=== PATIENT | male | born 1990 | race Caucasian/White ===

== ENCOUNTER 2016-10-10 17:14 | Emergency (ER) | payer BC ==
--- NOTE | 2016-10-10 17:59 | ER Document Report ---
ED Medical Screen (RME) - General Stated Complaint: PENIS PAIN Time seen by provider: 17:56 Mode of Arrival: Ambulatory Notes: Patient complains of intermittent penile pain for the last year. Has been seen by his primary care provider but no answer to the complaint has been found. Pain is worse after sexual intercourse, now having pain with voiding, which started today. Patient reports increased sensitivity to glans penis. Denies discharge. I have greeted and performed a rapid initial assessment of this patient. A comprehensive ED assessment and evaluation of the patient, analysis of test results and completion of the medical decision making process will be conducted by additional ED providers. TRAVEL OUTSIDE OF THE [place] IN LAST 30 DAYS: No - Related Data Allergies/Adverse Reactions: No Known Allergies Allergy (Verified 10/10/16 17:58) Past Medical History - Past Medical History Cardiac Medical History: Reports: Hx Hypertension Endocrine Medical History: Reports: Hx Diabetes Mellitus Type 2 Past Surgical History: Reports: Hx Abdominal Surgery - Hernia Repair, Hx Nose Surgery, Hx Oral Surgery - wisdom, Hx Orthopedic Surgery - L thumb - Immunizations Hx Diphtheria, Pertussis, Tetanus Vaccination: Yes Physical Exam - Vital signs Vitals: Temp Pulse Resp BP Pulse Ox 98.1 F 92 18 129/83 H 100 10/10/16 17:51 10/10/16 17:51 10/10/16 17:51 10/10/16 17:51 10/10/16 17:51 - Abdominal Notes: Abdomen soft, nontender, bowel sounds normal on exam. Course - Vital Signs Vital signs: Temp Pulse Resp BP Pulse Ox 98.1 F 92 18 129/83 H 100 10/10/16 17:51 10/10/16 17:51 10/10/16 17:51 10/10/16 17:51 10/10/16 17:51
[2016-10-10 18:25] LABS: APPEARANCE,URINE SLIGHTLY-CLOUDY; BILIRUBIN,URINE NEGATIVE (NEGATIVE); GLUCOSE, URINE >=500 mg/dL (NEGATIVE); KETONES,URINE TRACE mg/dL (NEGATIVE); LEUKOCYTE ESTERASE,URINE MODERATE (NEGATIVE); NITRITE,URINE NEGATIVE (NEGATIVE); PROTEIN,URINE NEGATIVE (NEGATIVE); UROBILINOGEN,URINE NEGATIVE mg/dL (<2.0)
[2016-10-10] MEDS ORDERED: CEFTRIAXONE INJ 250 MG VIAL IM ONE (20:59)
[2016-10-10] MEDS ORDERED: LIDOCAINE 1% INJ-PF (10 MG/ML) 30 ML SDV INJ ONE (20:59)
[2016-10-10] MEDS ORDERED: AZITHROMYCIN 250 MG TABLET PO ONE (21:00)
--- NOTE | 2016-10-10 21:02 | ER Document Report ---
ED GI/ - General Chief Complaint: Penile Pain Stated Complaint: PENIS PAIN Mode of Arrival: Ambulatory Notes: Patient is a 26-year-old male that comes emergency department for chief complaint of general discomfort in his groin, he states that his started to have painful urination over the past day, he noticed discharge at the tip of the penis which was yellowish in color this evening. Patient states he is sexually active with his . Patient denies fever, rash, or any other current symptoms. TRAVEL OUTSIDE OF THE [place] IN LAST 30 DAYS: No - Related Data Allergies/Adverse Reactions: No Known Allergies Allergy (Verified 10/10/16 17:58) Past Medical History - General Information source: Patient - Social History Smoking Status: Never Smoker Chew tobacco use (# tins/day): No Frequency of alcohol use: None Drug Abuse: None Lives with: Family Family History: Reviewed & Not Pertinent, Other - Mother-CHF Patient has suicidal ideation: No Patient has homicidal ideation: No - Past Medical History Cardiac Medical History: Reports: Hx Hypertension Endocrine Medical History: Reports: Hx Diabetes Mellitus Type 2 Renal/ Medical History: Denies: Hx Peritoneal Dialysis Past Surgical History: Reports: Hx Abdominal Surgery - Hernia Repair, Hx Nose Surgery, Hx Oral Surgery - wisdom, Hx Orthopedic Surgery - L thumb - Immunizations Hx Diphtheria, Pertussis, Tetanus Vaccination: Yes Review of Systems - Review of Systems Constitutional: No symptoms reported EENT: No symptoms reported Cardiovascular: No symptoms reported Respiratory: No symptoms reported Gastrointestinal: No symptoms reported Genitourinary: See HPI Male Genitourinary: See HPI Musculoskeletal: No symptoms reported Skin: No symptoms reported Hematologic/Lymphatic: No symptoms reported Neurological/Psychological: No symptoms reported Physical Exam - Vital signs Vitals: Temp Pulse Resp BP Pulse Ox 98.1 F 92 18 129/83 H 100 10/10/16 17:51 10/10/16 17:51 10/10/16 17:51 10/10/16 17:51 10/10/16 17:51 Interpretation: Normal - General General appearance: Appears well, Alert In distress: None - HEENT Head: Normocephalic, Atraumatic Eyes: Normal Pupils: PERRL - Respiratory Respiratory status: No respiratory distress Chest status: Nontender Breath sounds: Normal Chest palpation: Normal - Cardiovascular Rhythm: Regular Heart sounds: Normal auscultation Murmur: No - Abdominal Inspection: Normal Distension: No distension Bowel sounds: Normal Tenderness: Nontender Organomegaly: No organomegaly - Genitourinary Inspection: Penile discharge - Small amount at the tip. No: Blood at meatus Tenderness: Nontender Scrotum: Normal - Back Back: Normal, Nontender - Extremities General upper extremity: Normal inspection, Nontender, Normal color, Normal ROM , Normal temperature General lower extremity: Normal inspection, Nontender, Normal color, Normal ROM , Normal temperature, Normal weight bearing. No: Segundo's sign - Neurological Neuro grossly intact: Yes Cognition: Normal Orientation: AAOx4 [place] Coma Scale Eye Opening: Spontaneous [place] Coma Scale Verbal: Oriented [place] Coma Scale Motor: Obeys Commands [place] Coma Scale Total: 15 Speech: Normal Motor strength normal: LUE, RUE, LLE, RLE Sensory: Normal - Psychological Associated symptoms: Normal affect, Normal mood - Skin Skin Temperature: Warm Skin Moisture: Dry Skin Color: Normal Course - Re-evaluation Re-evalutation: Patient with penile discharge on examination, genitalia and inguinal exam unremarkable otherwise. Pending gonorrhea and Chlamydia results, patient given Rocephin and azithromycin, instructed partner to be treated, discussed follow- up and return precautions. Spoke with patient on the phone at [phone], informed him of positive gonorrhea results, patient states gratefulness, states his partner will be treated as well. - Vital Signs Vital signs: Temp Pulse Resp BP Pulse Ox 98.0 F 80 18 132/85 H 95 10/10/16 22:00 10/10/16 22:00 10/10/16 22:00 10/10/16 22:00 10/10/16 22:00 - Laboratory Laboratory results interpreted by me: 10/10/16 10/10/16 18:00 21:31 Urine Glucose (UA) >=500 H Urine Ketones TRACE H Ur Leukocyte Esterase MODERATE H N.gonorrhoeae DNA (PCR) DETECTED H Discharge - Discharge Clinical Impression: Discharge from penis, Dysuria Condition: Stable Disposition: HOME, SELF-CARE Additional Instructions: You have been treated for an infection, you have been also covered for gonorrhea and Chlamydia. Do not have intercourse for one week, any partners should be treated as well. Return to emergency department for any concerning symptoms.
[2016-10-11 00:29] LABS: CHLAM PCR NOT DETECTED (NOT DETECT)
[2016-10-11 02:38] VITALS: BP 132/85
== END 2016-10-10 22:15 | disposition home or self-care (01) ==
LOC: ER 17:14
DX: A54.9 Gonococcal infection, unspecified (principal); R30.0 Dysuria; R36.9 Urethral discharge, unspecified; E11.9 Type 2 diabetes mellitus without complications; I10 Essential (primary) hypertension
CPT/HCPCS: 99283; 96372; 81001; 87491; 87591; J3490; J0696

== ENCOUNTER 2017-04-25 20:19 | Emergency (ER) | payer SELFPAY ==
[2017-04-25] MEDS ORDERED: KETOROLAC TROMETHAMINE INJ/PF 30 MG/1 ML SDV IV ONE (23:56)
[2017-04-25] MEDS ORDERED: HALOPERIDOL LACTATE INJ 5 MG/1 ML VIAL IV ONE (23:56)
[2017-04-26] MEDS ORDERED: DIPHENHYDRAMINE HCL 50 MG/ML VIAL IV ONE (00:10)
[2017-04-26] MEDS ORDERED: PROCHLORPERAZINE EDISYLATE INJ 10 MG/2 ML VIAL IV ONE (00:10)
[2017-04-26] MEDS ORDERED: DEXAMETHASONE SOD PHOS INJ 10 MG/1 ML VIAL IV ONE (00:10)
--- NOTE | 2017-04-26 00:10 | ER Document Report ---
ED General - General Chief Complaint: Headache >24 hrs old Stated Complaint: HEADACHE Time Seen by Provider: 04/25/17 23:55 Notes: Patient is a 27-year-old male without past medical history who presents with 2 days of a headache. Describes as a severe, constant, throbbing bitemporal headache with an associated nausea, photophobia and phonophobia. He states that the headache was gradual in onset and got gotten progressively worse since that time. He has tried ibuprofen with no relief of his symptoms. States he has had headaches in the past but never to this degree of severity. He has not had any fever or constitutional symptoms. Denies any head trauma. He has not seen his primary care doctor regarding today's concerns. TRAVEL OUTSIDE OF THE [place] IN LAST 30 DAYS: No - Related Data Allergies/Adverse Reactions: No Known Allergies Allergy (Verified 10/10/16 17:58) Past Medical History - General Information source: Patient - Social History Smoking Status: Never Smoker Chew tobacco use (# tins/day): No Frequency of alcohol use: None Drug Abuse: None Lives with: Spouse/Significant other Family History: Reviewed & Not Pertinent, Other - Mother-CHF Patient has suicidal ideation: No Patient has homicidal ideation: No - Past Medical History Cardiac Medical History: Reports: Hx Hypertension Endocrine Medical History: Reports: Hx Diabetes Mellitus Type 2 Renal/ Medical History: Denies: Hx Peritoneal Dialysis Past Surgical History: Reports: Hx Abdominal Surgery - Hernia Repair, Hx Nose Surgery, Hx Oral Surgery - wisdom, Hx Orthopedic Surgery - L thumb - Immunizations Hx Diphtheria, Pertussis, Tetanus Vaccination: Yes Review of Systems - Review of Systems Notes: Constitutional: Negative for fever. HENT: Negative for sore throat. Eyes: Negative for visual changes. Cardiovascular: Negative for chest pain. Respiratory: Negative for shortness of breath. Gastrointestinal: Negative for abdominal pain, vomiting or diarrhea. Genitourinary: Negative for dysuria. Musculoskeletal: Negative for back pain. Skin: Negative for rash. Neurological: Negative for headaches, weakness or numbness. 10 point ROS negative except as marked above and in HPI. Physical Exam - Vital signs Vitals: Temp Pulse Resp BP Pulse Ox 98.0 F 98 16 119/85 97 04/25/17 22:13 04/25/17 22:13 04/25/17 22:13 04/25/17 22:13 04/25/17 22:13 Interpretation: Normal Notes: PHYSICAL EXAMINATION: GENERAL: Appears moderately uncomfortable but in no acute distress HEAD: Atraumatic, normocephalic. EYES: Pupils equal round and reactive to light, extraocular movements intact, sclera anicteric, conjunctiva are normal. ENT: nares patent, oropharynx clear without exudates. Moist mucous membranes. NECK: Normal range of motion, supple without lymphadenopathy LUNGS: Breath sounds clear to auscultation bilaterally and equal. No wheezes rales or rhonchi. HEART: Regular rate and rhythm without murmurs ABDOMEN: Soft, nontender, normoactive bowel sounds. No guarding, no rebound. No masses appreciated. EXTREMITIES: Normal range of motion, no pitting or edema. No cyanosis. NEUROLOGICAL: Face symmetric. Tongue protrudes midline. Extraocular motions intact. Pupils are 2 mm and equally reactive. Normal speech, normal gait. 5 out of 5 strength in both the distal and proximal upper and lower extremities bilaterally. Sensation is grossly intact throughout. Finger to nose testing normal. Pronator drift normal. PSYCH: Normal mood, normal affect. SKIN: Warm, Dry, normal turgor, no rashes or lesions noted. Course - Re-evaluation Re-evalutation: 04/26/17 00:10 Presentation of a headache that appears to be most consistent with tension versus migrainous type headache. Headache was not maximal in onset, patient has no focal neurologic deficits, no nuchal rigidity, vital signs within normal limits, no papilledema, and patient is overall well in appearance. Based on clinical history and examination I do not suspect an acute subarachnoid hemorrhage, dural venous sinus thrombosis, acute meningitis, or intercranial mass. Given my low clinical suspicion for any acute life-threatening etiology, I do not feel advanced neuro imaging or laboratory testing is indicated at this time. Will proceed with headache cocktail and reassess. 04/26/17 01:40 Patient has had complete resolution of his headache at this time. He remains without neurologic deficit. At this time will discharge with return precautions and follow-up recommendations. Verbal discharge instructions given a the bedside and opportunity for questions given. Medication warnings reviewed. Patient is in agreement with this plan and has verbalized understanding of return precautions and the need for primary care follow-up in the next 24-72 hours. - Vital Signs Vital signs: Temp Pulse Resp BP Pulse Ox 98.0 F 72 20 124/75 98 04/25/17 22:13 04/26/17 01:48 04/26/17 01:48 04/26/17 01:48 04/26/17 01:48 Discharge - Discharge Clinical Impression: Migraine headache Qualifiers: Migraine type: unspecified Status migrainosus presence: with status migrainosus Intractability: not intractable Qualified Code(s): G43.901 - Migraine, unspecified, not intractable, with status migrainosus Condition: Good Disposition: HOME, SELF-CARE Additional Instructions: You were seen today for a migraine headache. Please follow-up with your primary care doctor regarding today's ED visit. Return to emergency department immediately if you develop a headache that gets to its maximum severity within 20 minutes of onset, you pass out, you develop weakness, numbness, changes in your vision, become unable to keep any fluids down for more than 12 hours, or develop a fever greater than 100.4 degrees Fahrenheit. If you develop a similar migraine headache in the future I recommend that you immediately take 600 mg of ibuprofen and 50 mg of Benadryl and go to sleep as quickly as possible. This can often prevent your migraine headache from becoming severe.
[2017-04-26 01:49] VITALS: BP 124/75
== END 2017-04-26 01:48 | disposition home or self-care (01) ==
LOC: ER 20:19
DX: G43.901 Migraine, unspecified, not intractable, with status migrainosus (principal); R11.0 Nausea
CPT/HCPCS: 99284; 96374; 96375; J1200; J1885; J0780; J1100

== ENCOUNTER 2018-10-24 23:34 | Emergency (ER) | payer SELFPAY ==
[2018-10-25 00:39] VITALS: BP 133/84
--- NOTE | 2018-10-25 07:57 | EKG REPORT ---
SEVERITY:- NORMAL ECG - SINUS RHYTHM : Confirmed by: Weston Weeks MD 25-Oct-2018 07:56:52
== END 2018-10-25 02:09 | disposition left against medical advice (07) ==
LOC: ER 23:34
DX: Z53.21 Procedure and treatment not carried out due to patient leaving prior to being seen by health care provider (principal)
CPT/HCPCS: 93005; 93010

== ENCOUNTER 2019-09-05 07:36 | Emergency (ER) | payer BC ==
--- NOTE | 2019-09-05 09:15 | ER Document Report ---
ED Flu Like - General Chief Complaint: Cold Symptoms Stated Complaint: FLU SYMPTOMS Time Seen by Provider: 09/05/19 09:00 Primary Care Provider: JACQUELYN MOBLEY MD [Primary Care Provider] - Follow up as needed Notes: 29-year-old man presents to the emergency department with a complaint of a flulike illness. States that since Sunday he has been having muscle aches and pains with fever and fatigue. Thinks that he may have influenza. TRAVEL OUTSIDE OF THE [place] IN LAST 30 DAYS: No - Related Data Allergies/Adverse Reactions: No Known Allergies Allergy (Verified 09/05/19 08:09) Past Medical History - Social History Smoking Status: Never Smoker Chew tobacco use (# tins/day): No Frequency of alcohol use: None Drug Abuse: None Family History: Reviewed & Not Pertinent, Other - Mother-CHF Patient has suicidal ideation: No Patient has homicidal ideation: No - Past Medical History Cardiac Medical History: Reports: Hx Hypertension Endocrine Medical History: Reports: Hx Diabetes Mellitus Type 2 Renal/ Medical History: Denies: Hx Peritoneal Dialysis Past Surgical History: Reports: Hx Abdominal Surgery - Hernia Repair, Hx Nose Surgery, Hx Oral Surgery - wisdom, Hx Orthopedic Surgery - L thumb - Immunizations Hx Diphtheria, Pertussis, Tetanus Vaccination: Yes Review of Systems - Review of Systems Notes: Constitutional: + Fever. + Fatigue HENT: Negative for sore throat. Eyes: Negative for visual changes. Cardiovascular: Negative for chest pain. Respiratory: Negative for shortness of breath. Gastrointestinal: Negative for abdominal pain, vomiting or diarrhea. Genitourinary: Negative for dysuria. Musculoskeletal: + Myalgia Skin: Negative for rash. Neurological: Negative for headaches, weakness or numbness. 10 point ROS negative except as marked above and in HPI. Physical Exam - Vital signs Vitals: Temp Pulse Resp BP Pulse Ox 97.4 F 106 H 18 137/87 H 99 09/05/19 07:40 09/05/19 07:40 09/05/19 07:40 09/05/19 07:40 09/05/19 07:40 - Notes Notes: PHYSICAL EXAMINATION: Physical Exam: General: Well-nourished well-developed man in no acute distress HEENT: NC/AT, pupils equal round and reactive to light, MM moist,nares clear, oropharynx clear Neck: supple, no adenopathy, no masses. Lungs: clear, no wheezing, no rales no rhonchi CVS: Regular rate and rhythm no murmur gallop or rub Abdomen: Soft active nontender, no masses, no hepatosplenomegaly Ext: No edema clubbing or cyanosis. Neuro: Alert and responsive, moving all 4 extremities on command, cranial nerves intact. Skin: Intact no open lesions, no rash PSYCH: Normal mood, normal affect. Course - Re-evaluation Re-evalutation: 09/05/19 11:39 Patient with flulike illness, myalgias, fever, fatigue for the past 2 days. Influenza testing is negative, given the clinical presentation we will treat the patient as a flu patient. I will give him a prescription for Tamiflu, instructions on hydration and use of antipruritic medicines for fever and aches and pains.. - Vital Signs Vital signs: Temp Pulse Resp BP Pulse Ox 97.4 F 106 H 18 137/87 H 99 09/05/19 07:40 09/05/19 07:40 09/05/19 07:40 09/05/19 07:40 09/05/19 07:40 Discharge - Discharge Clinical Impression: Influenza Condition: Good Disposition: HOME, SELF-CARE Instructions: Influenza ([facility]) [id number] Additional Instructions: You have been diagnosed with influenza today, Tamiflu was prescribed for treatment, you may use Tylenol alternate with ibuprofen for fever and muscle aches and pains. Continue to hydrate well and follow-up as needed. If you develop new symptoms or concerns please do not hesitate to return to the emergency department for further evaluation. Referrals: JACQUELYN MOBLEY MD [Primary Care Provider] - Follow up as needed
[2019-09-05 10:14] LABS: A TYPE INFLUENZA AG NEGATIVE (NEGATIVE); B INFLUENZA AG NEGATIVE (NEGATIVE)
[2019-09-05 12:06] VITALS: BP 133/78
== END 2019-09-05 12:00 | disposition home or self-care (01) ==
LOC: ER 07:36
DX: J11.1 Influenza due to unidentified influenza virus with other respiratory manifestations (principal); M79.10 Myalgia, unspecified site; R50.9 Fever, unspecified; R53.83 Other fatigue; I10 Essential (primary) hypertension; E11.9 Type 2 diabetes mellitus without complications
CPT/HCPCS: 87804; 99283